=== PATIENT | female | born 1980 | race Caucasian/White ===

== ENCOUNTER 2016-06-21 20:23 | Emergency (ER) | payer MEDICAID ==
[~2016-06-21] VITALS: Ht 154.9 cm; Wt 68.0 kg
[2016-06-21 20:27] VITALS: Ht 154.9 cm; Wt 68.0 kg
[2016-06-21 22:03] LABS: URINE BLOOD (Dip) POC 1+ (NEGATIVE)
[2016-06-21] MEDS ORDERED: ONDANSETRON (ODT) 4 MG TAB ODT STA (22:37)
--- NOTE | 2016-06-21 22:44 | ERD ---
ER Documentation Chief Complaint Date/Time DATE: 06/21/16 TIME: 22:38 Chief Complaint Pelvic pain and dysuria HPI Pleasant 36-year-old female presenting to the emergency department today with family, patient reports dysuria 2 days, fever, chills, and nausea. Patient reports she has had urinary tract infections in the past and this feels similar , she denies back pain or, hematuria. ROS All systems reviewed and are negative except as per history of present illness. Allergies Allergies: Coded Allergies: No Known Allergy (Verified Allergy, Unknown, 04/26/08) PMhx/Soc Medical and Surgical Hx: pt denies Medical Hx, pt denies Surgical Hx Hx Alcohol Use: No Hx Substance Use: No Hx Tobacco Use: No Smoking Status: Never smoker Physical Exam Vitals Vital Signs Date Time Temp Pulse Resp B/P Pulse Ox O2 Delivery O2 Flow Rate FiO2 06/21/16 20:27 98.0 100 18 153/75 99 Vital signs stable, triage notes reviewed Physical Exam Const: No acute distress Head: Atraumatic Eyes: ENT: Normal External Ears, Nose and Mouth. Mucous membranes moist Neck: Resp: Cardio: Abd: Soft,non distended, low bladder tenderness. Normal bowel sounds, negative CVA tenderness Skin: Back: No midline or flank tenderness Ext: No cyanosis, or edema Neur: Awake and alert Psych: Normal Mood and Affect Results 24 hrs Laboratory Tests Test 06/21/16 22:01 Bedside Urine Blood 1+ Bedside Urine Glucose (UA) Negative Bedside Urine Ketones (LAB) Negative Bedside Urine Leukocyte Esterase (L 2+ Bedside Urine Nitrite (LAB) Negative Bedside Urine Protein (LAB) Negative Bedside Urine pH (LAB) 7.0 Procedures/MDM 36-year-old female presenting with dysuria 2 days. Patient has no other complaint, urine dip done in emergency department positive for leukocytosis +2. Microscopic hematuria +1, nitrates negative. Negative CVA tenderness pyelonephritis is not likely. Patient is nauseated, received Zofran with effective symptomatic relief of nausea while in emergency department along with her first dose of medication without adverse reaction. Patient will be sent home on Macrobid and Pyridium, teaching provided Pyridium will turn urine orange. I feel the patient is stable for discharge at this time. Instructed to follow-up for repeat urinalysis after antibiotic course is complete. I have discussed results, examination findings, the treatment plan with the patient and family present prior to discharge. Indications for emergent reevaluation, side effects of medication were also discussed. All questions were answered. Patient verbalizes understanding and agrees with plan of care. Departure Diagnosis: Primary Impression: Urinary tract infection Urinary tract infection type: site unspecified Hematuria presence: with hematuria Qualified Code: N39.0 - Urinary tract infection with hematuria, site unspecified Patient Instructions: Understanding Urinary Tract Infections (UTIs) [facility] Additional Instructions: Thank you for for coming to [facility] for your care today. Please ask your nurse or provider if you have questions about your care today and do not leave until all your questions have been answered. Please use any medications given as directed and follow-up with your doctor (or the doctor you were referred to) in the next 2-3 days. If you do not have a primary care doctor you may follow up at the [facility] (listed below). You may also use motrin and tylenol as needed for fever and/or pain unless instructed otherwise by your provider or nurse. Indications for more urgent follow-up have been discussed, but you may return to the Emergency Department at ANY time for any worrisome or worsening symptoms. If you have abdominal pain, please know that no test or exam you received is perfect and you should follow up within 8 hours for continued pain. If you had any imaging studies today, such as an X-Ray or CT Scan, these studies will be reviewed later by a radiologist. You will be called if there are important findings that were not identified today, so make sure the contact information you provided at registration is correct. If you received any narcotic pain control medicine today, such as Vicodin, Morphine or Dilaudid, your coordination and judgment may be affected for a number of hours. Please do not drive or operate heavy machinery, and you may want someone to assist you at home. If you were given a prescription for narcotic medication, be aware that it is very addictive- use sparingly and only if necessary. DEE CHUNG Jun 21, 2016 22:44
[2016-06-21] MEDS ORDERED: PHEN-538 PO (22:45)
[2016-06-21] MEDS ORDERED: NITR-58 PO (22:45)
[2016-06-21] MEDS ORDERED: NITROFURANTOIN (SR) 100 MG CAP PO ONE (23:00)
[2016-06-21] MEDS ORDERED: PHENAZOPYRIDINE 100 MG TAB PO ONE (23:00)
[2016-06-21 23:01] VITALS: BP 122/83; PULSE 90; RESP 18; TEMP 98
== END 2016-06-21 23:01 | disposition home or self-care (01) ==
LOC: FTE 20:23
DX: N39.0 Urinary tract infection, site not specified (principal); R11.0 Nausea; R10.2 Pelvic and perineal pain
CPT/HCPCS: 81003; Z7502; Z7610; 99283